=== PATIENT | male | born 1975 | race Caucasian/White ===

== ENCOUNTER 2017-05-08 04:37 | Emergency (ER) | payer OTHER ==
[~2017-05-08] VITALS: Ht 167.6 cm; Wt 91.8 kg
[~2017-05-08 04:37] MED LIST: SERT25TA PO
[2017-05-08 04:38] VITALS: BP 153/105
[2017-05-08] MEDS ORDERED: LORazepam 1MG TABLET PO ONE (06:30)
[2017-05-08] MEDS ORDERED: LORazepam 1MG TABLET ONE (06:39)
== END 2017-05-08 07:30 | disposition left against medical advice (07) ==
LOC: ED 06:33
DX: F22 Delusional disorders (principal); F10.220 Alcohol dependence with intoxication, uncomplicated
CPT/HCPCS: 99282; 99283

== ENCOUNTER 2017-05-16 21:23 | Emergency (ER) | payer OTHER ==
[~2017-05-16] VITALS: Ht 167.6 cm; Wt 92.7 kg
[2017-05-16 21:24] VITALS: BP 168/83
== END 2017-05-16 22:15 | disposition home or self-care (01) ==
LOC: ED 21:40
DX: N50.89 Other specified disorders of the male genital organs (principal); F17.210 Nicotine dependence, cigarettes, uncomplicated
CPT/HCPCS: 99283

== ENCOUNTER 2017-05-25 03:51 | Emergency (ER) | payer OTHER ==
[~2017-05-25] VITALS: Ht 167.6 cm; Wt 91.8 kg
[2017-05-25] MEDS ORDERED: DIPH25CA61 PO (04:10)
[2017-05-25 04:24] LABS: DAU SCREEN DISCLAIMER
[2017-05-25] MEDS ORDERED: LORazepam 1MG TABLET ONE (04:48)
[2017-05-25 05:00] VITALS: BP 157/96
[2017-05-25] MEDS ORDERED: LORazepam 1MG TABLET PO ONE (05:00)
== END 2017-05-25 05:10 | disposition home or self-care (01) ==
LOC: ED 05:00
DX: F41.1 Generalized anxiety disorder (principal); F17.200 Nicotine dependence, unspecified, uncomplicated
CPT/HCPCS: 80307; 99284